=== PATIENT | female | born 1995 | race Caucasian/White ===

== ENCOUNTER 2017-01-13 05:46 | Day surgery (SDC) | payer BC ==
[2017-01-10 11:33] VITALS: BMI 19.5
[2017-01-13] VITALS (13 sets, daily range): BP systolic 100–113; BP diastolic 55–73; PULSE 76–94; RESP 14–18; Ht 160 cm; Wt 55.5 kg
[~2017-01-13] VITALS: Ht 160 cm; Wt 55.5 kg
[2017-01-13] MEDS ORDERED: MIDAZOLAM 1 MG/ML 2 ML INJ ONE (06:55)
[2017-01-13] MEDS ORDERED: FENTAnyl 50 MCG/ML VIAL ONE ×3 (06:55→11:53)
[2017-01-13] MEDS ORDERED: ROPIVACAINE 0.5 % 30 ML VIAL ONE ×3 (06:59→10:38)
[2017-01-13] MEDS ORDERED: ROCURONIUM 50 MG INJ ONE ×2 (07:00→11:17)
[2017-01-13] MEDS ORDERED: BUPIVACAINE 0.5% (SDV) 30 ML INJ ONE (07:12)
[2017-01-13] MEDS ORDERED: POLYMYXIN/BACITRACIN 1L IRRIG ONE (07:12)
--- NOTE | 2017-01-13 07:12 | HPN ---
Date/Time of Note Date/Time of Note DATE: 01/13/17 TIME: 07:12 Interval H&P Admission Note Pt. seen H&P reviewed: No system changes AUBREE MELÉNDEZ MD Jan 13, 2017 07:12
[2017-01-13] MEDS ORDERED: morphine 2 MG INJ IV PRN (07:30)
[2017-01-13] MEDS ORDERED: ONDANSETRON 4 MG INJ IV PRN ×2 (07:30→12:00)
[2017-01-13] MEDS ORDERED: ONDANSETRON 4 MG INJ ONE (11:17)
[2017-01-13] MEDS ORDERED: LIDOCAINE 2% (SDV) 5 ML INJ ONE (11:17)
[2017-01-13] MEDS ORDERED: CEFAZOLIN 1 GM INJ ONE (11:17)
[2017-01-13] MEDS ORDERED: PROPOFOL 20 ML ONE (11:17)
[2017-01-13] MEDS ORDERED: MEPERIDINE 25 MG INJ ONE (11:53)
[2017-01-13] MEDS: FENTAnyl 50 MCG/ML VIAL IV PRN ×4 (11:56→12:14)
[2017-01-13] MEDS ORDERED: morphine (1 MG/ML) 10ML SYRINGE IV PRN (12:00)
[2017-01-13] MEDS ORDERED: DIPHENHYDRAMINE 50 MG INJ IV PRN (12:00)
[2017-01-13] MEDS ORDERED: OXYCODONE/ACETAMINOPHEN (5/325) TAB PO PRN (12:00)
[2017-01-13] MEDS ORDERED: MEPERIDINE 25 MG INJ IV PRN (12:00)
--- NOTE | 2017-01-13 12:05 | OPR ---
Date/Time of Note Date/Time of Note DATE: 01/13/17 TIME: 11:58 Operative Report Procedure Date: Jan 13, 2017 Estimated Blood Loss: minimal Transfusion Required: no Specimen: none Pt Condition Post Procedure: stable Disposition: PACU Operative\Procedure Findings Pre-operative Diagnosis Left knee ACL tear left knee medial meniscal tear Postoperative Diagnosis left knee ACL tear left knee medial meniscal tear Operation Performed 1. left knee arthroscopy with ACL reconstruction with Hamstring Autograft 2. left knee arthroscopy with Chondroplasty 3. left knee arthroscopy with medial meniscal repair Surgeon: AUBREE MELÉNDEZ MD pastry assistant: HASEEB MELÉNDEZ MD Second Trucking Contractor: Aubree Diez MD Anesthesia: general, other (fascia iliacus) Anesthesiologist: MD Gerri Tourniquet Time: 90 min at 250 mmHg Estimated Blood Loss: 0 - 10 ml's Grafts/Implants Mitek Adjustable rigid loop button Mitek BioIntrafix 6-8 size for a size 8 graft Complications: None Pt Condition Post Procedure: stable Disposition: PACU Procedure Description RISK NOTE: Patient was explained the risks and benefits of the surgery in the patients [place] language, including not limited to infection, bleeding, loss of limb, loss of life, need for future surgery, risk of anesthesia, risk of injury to the blood vessels and nerves, ligaments or tendons, and risk of deep vein thrombosis. Patient understood these risks and wished to proceed with the surgery. CASH REGISTER SERVICER SURGEON: During the operation, the services of a physician surgical coder were medically indicated and necessary to provide exposure of the operative site for the surgical procedure and to maintain the limb in a proper position to carry out the operation safely and efficiently. Without the qualified certified registered dental assistant being present, it would have extended the operative procedure and made the procedure technically more difficult to perform. INDICATIONS: The patient is a 21-year-old female with a prolonged history of left knee giving way. She has had continued episodes of instability. The patient has restored their range of motion and is now brought to the operating room for ACL reconstruction, possible partial medial and lateral meniscectomy versus medial and lateral meniscal repair, chondroplasty and debridement. The risks, benefits, and alternatives of surgery were discussed with the patient. The risks included but were not limited to infection, bleeding, damage to vessels and nerves, loss of motion, continued pain, re-tear of the meniscus, deep venous thrombosis, and complications due to anesthesia including nerve injury, myocardial infarction, stroke, , etc. The patient stated understanding of the nature of the surgical procedure and gave written and verbal consent to proceed. PROCEDURE: The patient was brought to the operating room and placed supine on the operating room table. General anesthesia was induced and a fascia iliacus block was placed. The left lower extremity was examined under anesthesia. Range of motion was 0 degrees of extension to 135 degrees of flexion. There was no varus or valgus or posterolateral instability. He had no instability to varus or valgus stress at 0 or 30 degrees. He had a 2+ Cory and drawer with a positive pivot shift The left lower extremity was then prepped and draped in the usual fashion. A tourniquet was placed proximally on the thigh over a bias stockinette. A standard anterolateral parapatellar stab wound was created. The knee joint was entered with a blunt-tipped obturator, followed by the 30-degree video arthroscope. An anteromedial portal was established under arthroscopic control. A routine arthroscopic survey was performed. The suprapatellar pouch was unremarkable. The undersurface of the patella was well-preserved. The patella appeared to track centrally within the trochlear groove. Trochlea no chondromalacia. The medial and lateral gutters were inspected and there was no loose body seen. There was no hypertrophied plica. The popliteal hiatus was entered and was unremarkable. The lateral compartment was entered. The lateral femoral condyle exhibited no chondromalacia and the lateral tibial plateau showed no chondromalacia. There was no chondromalacia adjacent to the notch. There was no chondromalacia along the central aspect of the weight bearing lateral tibial plateau. The lateral meniscus was probed and found to be stable and firm on probing The intercondylar notch was visualized. The anterior cruciate ligament was torn from its femoral origin. There was an empty lateral wall. Posteromedially there was no loose body seen. The posterior cruciate ligament was visualized and appeared intact. The medial compartment was entered. The articular surfaces of the medial femoral condyle and medial tibial plateau were visualized. There was minimal chondromalacia noted on the medial femoral condyle, and chondromalacia noted on the medial tibial plateau. The medial meniscus was torn at the mid-zone at a red-red zone in a longitudinal fashion. It was then rasped and then repaired with 2 Mitek Meniscal Repair devices in a vertical and horizontal mattress fashion. Attention was turned to reconstruction of the anterior cruciate ligament. Following exsanguination with an Esmarch bandage the tourniquet was inflated to 250 mm of mercury. Using a motorized shaver a limited notchplasty was performed, exposing the lateral wall and roof of the notch, identifying the [id number] position. The stump of the anterior cruciate ligament was debrided. A Vector guide was placed intra-articularly between the tibial spines in line with the anterior horn of the lateral meniscus. A Toribio wire was then inserted into the knee through a 2 cm incision made over the proximal medial tibia for the hamstring harvest. The incision was deepened through the subcutaneous tissue with subperiosteal dissection achieved. Bleeding points were coagulated with the Bovie electrocautery. The Semitendinosis and gracilis were harvested and taken to the back table, accommodating a 8 mm graft on the femoral side and 8 mm graft on the tibial side. Tibial drilling was then carried out first with a 6 mm followed by a 8 mm cylindrical reamer with the guide set at 55 degrees. Via an accessory medial portal, the Beath pin was drilled out the femoral cortex and skin with the knee in hyperflexion. The femoral tunnel was then created, with a spade tip guidewire, Depth-gauging confirmed a tunnel length of 30 mm. Then reaming proceeded, first with a 6 mm then an 8 mm drill to a depth of 20mm. A adjustable rigid loop Mitek button was selected. The graft was inserted intra -articularly and the Mitek button was deployed. The graft was cycled for 20 cycles with 25 pounds of force to pre-load the graft. Tibial fixation was carried out using a 6-8 BioIntra-Fix in 10 degrees of flexion with a posterior drawer. At the completion of surgery the patient had a firm stable Cory. There was a negative pivot shift. The patient had a 0 firm Cory and a negative pivot shift. There was no evidence for any roof or lateral wall impingement. The tourniquet was deflated at 90 minutes. The knee was irrigated with two liters of lactated Ringer's solution. Excess fluid was drained. The tibial wounds were then copiously irrigated with bacitracin solution and closed in layers with #0, #2-0 and #3-0 Vicryl. The skin was reapproximated with #4-0 Monocryl. The knee was injected with 20 cc of 0.5% plain ropivacaine. A dry sterile dressing was applied, followed by a bulky bandage and HOMA stocking with a cold therapy unit placed over the bulky bandage and HOMA stocking, insuring no contact with the skin. A postoperative TROM brace was applied locked in full extension. The patient was awakened in the Operating Room and transported to the Recovery Room in satisfactory condition. The patient appeared to tolerate the procedure well. At the completion of surgery the patient had soft compartments, palpable pulses, and brisk capillary refill. There were no complications noted. AUBREE MELÉNDEZ MD Jan 13, 2017 12:05
== END 2017-01-13 12:55 | disposition home or self-care (01) ==
LOC: SDS 05:46
PROVIDERS: ATTEND Orthopaedic Surgery
DX: M23.004 Cystic meniscus, unspecified medial meniscus, left knee (principal); S83.512D Sprain of anterior cruciate ligament of left knee, subsequent encounter; X58.XXXD Exposure to other specified factors, subsequent encounter
CPT/HCPCS: 29881; 29888; 84703; J0690; J2175; J2250; J2405; J2795; J3010; Z7512; Z7610